=== PATIENT | male | born 1965 | race Caucasian/White ===

== ENCOUNTER 2022-01-24 23:15 | Observation (INO) | payer OTHER ==
[2022-01-24] MEDS ORDERED: ONDANSETRON 4 MG/2 ML VIAL ONE (23:45)
[2022-01-24] MEDS ORDERED: MORPHINE 4 MG/ML SYR ONE (23:45)
[2022-01-24] MEDS ORDERED: HYDRALAZINE HCL 20 MG/ML VIAL ONE (23:45)
[2022-01-24] MEDS ORDERED: ASPIRIN 81 MG CHEWABLE TABLET ONE (23:45)
[2022-01-24] MEDS ORDERED: FAMOTIDINE 20 MG/2 ML VIAL IV ONE (23:45)
[2022-01-24] MEDS ORDERED: NA CHLORIDE 0.9% 1,000 ML ONE (23:46)
[2022-01-25] LABS: Albumin 4.1 g/dL (3.4-5.0); Bilirubin Direct 0.2 mg/dL (0-0.2); Bilirubin Total 0.6 mg/dL (0.2-1.0); Magnesium 2.1 mg/dL (1.8-2.4); Potassium 3.4 mmol/L (3.5-5.1); Protein, Total 7.5 g/dL (6.4-8.2); Troponin High Sensitivity 6.9 pg/mL (<58.9)
[2022-01-25 00:01] LABS: Absolute Lymphocytes (CBC) 3.5 K/uL (0.7-4.9); Lymphocytes % 23.1 % (15.3-44.8); MPV 7.8 fL (7.6-11.3); RBC Red Blood Cell Count 4.66 M/uL (4.33-5.43)
[2022-01-25 00:02] LABS: Protime INR 0.94
[2022-01-25 00:37] LABS: Blood Morphology Comment NOT SEEN (NOT SEEN); Platelet Estimate ADEQ
[2022-01-25] MEDS ORDERED: HYDRALAZINE HCL 20 MG/ML VIAL ONE (00:52)
[2022-01-25] MEDS ORDERED: NS KCL 20MEQ 1,000 ML IV ONE (00:52)
[2022-01-25 01:27] LABS: Urine Blood Negative (Negative); Urine Glucose Negative (Negative); Urine Protein Negative (Negative); Urine Specific Gravity >=1.030 (1.005-1.030)
--- NOTE | 2022-01-25 01:28 | ER ---
Nurse's Notes [facility] Name: Cornelio Holland Age: 57 yrs Sex: Male : 1965 Arrival Date: 01/24/2022 Time: 23:16 Bed 4 Private MD: Marla Velazquez Diagnosis: Chest pain, unspecified;Bradycardia, unspecified;Essential (primary) hypertension;Elevated white blood cell count;Hypokalemia Presentation: 01/24 23:28 Chief complaint: Patient states: I started having chest pain around 1900. It is a jb4 stabbing pain in my shoulders and upper abdomen. It is constant sharp pain, nothing I do makes it any better. Coronavirus screen: At this time, the client does not indicate any symptoms associated with coronavirus-19. Ebola Screen: No symptoms or risks identified at this time. Initial Sepsis Screen: Does the patient meet any 2 criteria? No. Patient's initial sepsis screen is negative. Does the patient have a suspected source of infection? No. Patient's initial sepsis screen is negative. Risk Assessment: Do you want to hurt yourself or someone else? Patient reports no desire to harm self or others. Onset of symptoms was January 24, 2022 at 19:00. Transition of care: patient was not received from another setting of care. 23:28 Method Of Arrival: Wheelchair jb4 23:28 Acuity: GRICELDA 2 jb4 Historical: - Allergies: 23:30 No Known Allergies; jb4 - Home Meds: 23:30 Lisinopril Oral [Active]; amlodipine oral [Active]; Simvastatin Oral [Active]; jb4 Metformin Oral [Active]; - PMHx: 23:30 DM; HTN; Hypercholesterolemia; jb4 - PSHx: 23:30 None; jb4 - Immunization history:: Adult Immunizations up to date. - Social history:: Smoking status: Patient denies any tobacco usage or history of. - Family history:: not pertinent. Screenin/27 00:00 Abuse screen: Denies threats or abuse. Denies injuries from another. Nutritional as6 screening: No deficits noted. Tuberculosis screening: No symptoms or risk factors identified. Fall Risk None identified. Assessment: 01/24 23:35 General: Appears uncomfortable, Behavior is cooperative. Pain: Complains of pain in as6 right supraclavicular area, right clavicle, left supraclavicular area and left clavicle Pain radiates to abdomen Pain began gradually, 3 hours ago. Neuro: Level of Consciousness is awake, alert, obeys commands, Oriented to person, place, time, situation. Cardiovascular: Reports chest pain, shortness of breath, JVD is absent Patient's skin is warm and dry. Rhythm is sinus bradycardia. 23:35 Respiratory: Respiratory effort is even, unlabored, Respiratory pattern is regular, as6 symmetrical. GI: Reports nausea, "I feel like I have food poisoning". Vital Signs: 23:28 BP 192 / 109; Pulse 43; Resp 12; Temp 97.6(TE); Pulse Ox 100% on R/A; Weight 79.38 kg jb4 (R); Height 5 ft. 7 in. (170.18 cm) (R); Pain 8/10; 23:58 BP 166 / 100; Pulse 45; Resp 17; Pulse Ox 96% on R/A; oe 01/25 00:30 BP 114 / 81; Pulse 77; Resp 16 S; Pulse Ox 98% on R/A; as6 01:00 BP 115 / 80; Pulse 75; Resp 16 S; Pulse Ox 97% on R/A; as6 01:52 BP 110 / 80; Pulse 75; Resp 20 S; Pulse Ox 99% on R/A; as6 01/24 23:28 Body Mass Index 27.41 (79.38 kg, 170.18 cm) jb4 ED Course: 01/24 23:16 Patient arrived in ED. mr 23:16 Marla Velazquez MD is Private Physician. mr 23:20 Arm band placed on right wrist. EKG completed in triage. Results shown to MD. jb4 23:21 Alex Nicholson MD is Attending Physician. [facility] 23:22 Isauro Rivera, DAMARI is Primary Nurse. as6 23:30 Triage completed. jb4 23:35 Inserted saline lock: 20 gauge in right antecubital area, using aseptic technique. oe Blood collected. 23:37 SARS-COV-2 RT PCR (Document "Date of Onset" if Symptomatic) Sent. kd3 23:45 XRAY Chest (1 view) In Process Unspecified. EDMS 01/25 00:01 Bed in low position. Call light in reach. Side rails up X2. Adult w/ patient. Cardiac as6 monitor on. Pulse ox on. NIBP on. 00:01 Patient maintains SpO2 saturation greater than 95% on room air. as6 01:25 Arnold Hernandez MD is Hospitalizing Provider. conrad 01:27 Sal Paul MD is Hospitalizing Provider. conrad 01:29 CT Aorta for Dissection In Process Unspecified. EDMS 03:16 No provider procedures requiring assistance completed. Patient admitted, IV remains in as6 place. Administered Medications: 00:13 Discontinued: NS 0.9% 1000 ml IV at 125 ml/hr continuous conrad 01/24 23:55 Drug: Aspirin Chewable Tablet 324 mg Route: PO; 01/25 01:32 Follow up: Response: No adverse reaction 01/24 23:56 Drug: NS 0.9% 1000 ml Route: IV; Rate: 125 ml/hr; Site: right antecubital; 01/25 01:33 Follow up: Response: No adverse reaction; IV Status: Order to discontinue infusion; IV as6 Intake: 150ml 01/24 23:56 Drug: morphine 4 mg Route: IVP; Site: right antecubital; 01/25 01:33 Follow up: Response: No adverse reaction; RASS: Alert and Calm (0) 01/24 23:56 Drug: Zofran (Ondansetron) 4 mg Route: IVP; Site: right antecubital; 01/25 01:33 Follow up: Response: No adverse reaction; RASS: Alert and Calm (0) 01/24 23:57 Drug: Pepcid (famotidine) 20 mg Route: IVP; Site: right antecubital; 01/25 01:33 Follow up: Response: No adverse reaction 01/24 23:57 Drug: hydrALAZINE 10 mg Route: IVP; Site: right antecubital; 01/25 01:33 Follow up: Response: No adverse reaction 01:32 Drug: NS 0.9% with KCl 20 mEq/L 1000 ml Route: IV; Rate: 125 ml/hr; Site: right as6 antecubital; 01:34 Not Given (Hemodynamic Parameters): hydrALAZINE 10 mg IVP once 02:56 Drug: Lovenox (enoxaparin) 80 mg Route: Sub-Q; Site: right lower abdomen; al4 03:16 Follow up: Response: No adverse reaction al4 Intake: 01:33 IV: 150ml; Total: 150ml. as6 Outcome: 01:26 Decision to Hospitalize by Provider. conrad 03:16 Admitted to Med/surg accompanied by tech, via wheelchair, room 229, with chart, Report as6 called to Altagracia WETZEL 03:16 Condition: stable 03:16 Instructed on the need for admit. 03:18 Patient left the ED. as6 Signatures: Dispatcher [employer] EDMS Alex Nicholson MD MD cha Rivera, Mary mr Matt Burkett, RN RN jb4 Pa Saunders Ashby, RN RN as6 Mariela Mann RN RN kd3 Filippo Crooks
--- NOTE | 2022-01-25 01:28 | EDPHYS ---
Physician Documentation [facility] Name: Cornelio Holland Age: 57 yrs Sex: Male : 1965 Arrival Date: 01/24/2022 Time: 23:16 Bed 4 Private MD: Marla Velazquez ED Physician Alex Nicholson HPI: 01/24 23:31 This 57 yrs old Male presents to ER via Wheelchair with complaints of Chest conrad Pain. 23:31 The patient or guardian reports chest pain that is located primarily in the anterior conrad chest wall, bilaterally. Onset: 6 hour(s) ago. The pain does not radiate. Associated signs and symptoms: Pertinent positives: lightheadedness, shortness of breath. The chest pain is described as a heaviness, a pressure. Duration: The patient or guardian reports a single episode, that is still ongoing. Modifying factors: The symptoms are alleviated by nothing. the symptoms are aggravated by nothing. Severity of pain: At its worst the pain was moderate in the emergency department the pain is unchanged. The patient has not experienced similar symptoms in the past. Historical: - Allergies: 23:30 No Known Allergies; jb4 - Home Meds: 23:30 Lisinopril Oral [Active]; amlodipine oral [Active]; Simvastatin Oral [Active]; jb4 Metformin Oral [Active]; - PMHx: 23:30 DM; HTN; Hypercholesterolemia; jb4 - PSHx: 23:30 None; jb4 - Immunization history:: Adult Immunizations up to date. - Social history:: Smoking status: Patient denies any tobacco usage or history of. - Family history:: not pertinent. ROS: 23:31 Constitutional: Negative for fever, chills, and weight loss, Eyes: Negative for injury, conrad pain, redness, and discharge, ENT: Negative for injury, pain, and discharge, Neck: Negative for injury, pain, and swelling, Respiratory: Negative for shortness of breath, cough, wheezing, and pleuritic chest pain, Back: Negative for injury and pain, : Negative for injury, bleeding, discharge, and swelling, MS/Extremity: Negative for injury and deformity, Skin: Negative for injury, rash, and discoloration, Neuro: Negative for headache, weakness, numbness, tingling, and seizure, Psych: Negative for depression, anxiety, suicide ideation, homicidal ideation, and hallucinations, Allergy/Immunology: Negative for hives, rash, and allergies, Endocrine: Negative for neck swelling, polydipsia, polyuria, polyphagia, and marked weight changes, Hematologic/Lymphatic: Negative for swollen nodes, abnormal bleeding, and unusual bruising. 23:31 Cardiovascular: Positive for chest pain. 23:31 Respiratory: Positive for shortness of breath, at rest. Exam: 23:31 Constitutional: This is a well developed, well nourished patient who is awake, alert, conrad and in no acute distress. Head/Face: Normocephalic, atraumatic. Eyes: Pupils equal round and reactive to light, extra-ocular motions intact. Lids and lashes normal. Conjunctiva and sclera are non-icteric and not injected. Cornea within normal limits. Periorbital areas with no swelling, redness, or edema. ENT: Nares patent. No nasal discharge, no septal abnormalities noted. Tympanic membranes are normal and external auditory canals are clear. Oropharynx with no redness, swelling, or masses, exudates, or evidence of obstruction, uvula midline. Mucous membranes moist. Neck: Trachea midline, no thyromegaly or masses palpated, and no cervical lymphadenopathy. Supple, full range of motion without nuchal rigidity, or vertebral point tenderness. No Meningismus. Chest/axilla: Normal chest wall appearance and motion. Nontender with no deformity. No lesions are appreciated. Respiratory: Lungs have equal breath sounds bilaterally, clear to auscultation and percussion. No rales, rhonchi or wheezes noted. No increased work of breathing, no retractions or nasal flaring. Back: No spinal tenderness. No costovertebral tenderness. Full range of motion. Male : Normal genitalia with no discharge or lesions. Skin: Warm, dry with normal turgor. Normal color with no rashes, no lesions, and no evidence of cellulitis. MS/ Extremity: Pulses equal, no cyanosis. Neurovascular intact. Full, normal range of motion. Neuro: Awake and alert, GCS 15, oriented to person, place, time, and situation. Cranial nerves II-XII grossly intact. Motor strength 5/5 in all extremities. Sensory grossly intact. Cerebellar exam normal. Normal gait. Psych: Awake, alert, with orientation to person, place and time. Behavior, mood, and affect are within normal limits. 23:31 Cardiovascular: Rate: bradycardic, Rhythm: regular, Pulses: Pulses are 4+ in bilateral radial, brachial, femoral, popliteal, posterior tibial and and dorsalis pedis arteries.. Heart sounds: normal, Edema: is not appreciated, JVD: is not appreciated. 23:31 ECG was reviewed by the Attending Physician. 23:34 ECG was reviewed by the Attending Physician. conrad Vital Signs: 23:28 BP 192 / 109; Pulse 43; Resp 12; Temp 97.6(TE); Pulse Ox 100% on R/A; Weight 79.38 kg jb4 (R); Height 5 ft. 7 in. (170.18 cm) (R); Pain 8/10; 23:58 BP 166 / 100; Pulse 45; Resp 17; Pulse Ox 96% on R/A; oe 01/25 00:30 BP 114 / 81; Pulse 77; Resp 16 S; Pulse Ox 98% on R/A; as6 01:00 BP 115 / 80; Pulse 75; Resp 16 S; Pulse Ox 97% on R/A; as6 01:52 BP 110 / 80; Pulse 75; Resp 20 S; Pulse Ox 99% on R/A; as6 01/24 23:28 Body Mass Index 27.41 (79.38 kg, 170.18 cm) jb4 MDM: 01/24 23:21 Patient medically screened. conrad 23:35 Differential diagnosis: abnormal EKG, acute myocardial infarction, acute pericarditis, conrad anxiety, chest wall pain, cholecystitis, Cholelithiasis costochondritis, esophagitis, hiatal hernia, myocarditis, pancreatitis, peptic ulcer disease, pulmonary embolus, stable angina, thoracic aortic disection, unstable angina. HEART Score: History: Moderately Suspicious (1), ECG: Non specific repolarization disturbance / LBTB / PM (1), Age: > 45 and < 65 years (1), Risk Factors: > or = 3 Risk factors for atherosclerotic disease (2), [Hypercholesterolemia] [Hypertension] [DM] [+ Family HX] Troponin: < or = 1 x Normal Limit (0), Total Score = 5. The patient was given aspirin in the Emergency Department. The patient's deep vein thrombosis risk score was calculated as follows: Total Score: 0. This patient was found to be at low risk for a deep vein thrombosis by using the Well's assessment criteria. The patient's pulmonary embolism risk score was calculated as follows: Total Score: 0-2 points. This patient was found to be at low risk for a pulmonary embolism by using the Well's assessment criteria. HAYDEE Risk Score: TOTAL SCORE = 0. Data reviewed: vital signs, nurses notes, lab test result(s), EKG, radiologic studies, CT scan, plain films. 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 Test interpretation: by ED physician or midlevel provider: ECG, plain radiologic studies. Counseling: I had a detailed discussion with the patient and/or guardian regarding: the historical points, exam findings, and any diagnostic results supporting the discharge/admit diagnosis, lab results, radiology results. 01/24 23:22 Order name: Basic Metabolic Panel; Complete Time: 00:01 [facility] 01/24 23:22 Order name: CBC with Diff; Complete Time: 00:38 [facility] 01/24 23:22 Order name: LFT's; Complete Time: 00:01 [facility] 01/24 23:22 Order name: Magnesium; Complete Time: 00:01 [facility] 01/24 23:22 Order name: NT PRO-BNP; Complete Time: 00:01 [facility] 01/24 23:22 Order name: PT-INR; Complete Time: 00:03 [facility] 01/24 23:22 Order name: Troponin HS; Complete Time: 00:01 [facility] 01/24 23:22 Order name: XRAY Chest (1 view) [facility] 01/24 23:22 Order name: Lipase; Complete Time: 00:01 [facility] 01/24 23:22 Order name: SARS-COV-2 RT PCR (Document "Date of Onset" if Symptomatic); Complete Time: conrad 02:01/24 23:30 Order name: CT Aorta for Dissection [facility] 01/25 00:09 Order name: Manual Differential; Complete Time: 00:38 [facility] 01/25 01:27 Order name: Urine Dipstick-Ancillary; Complete Time: 02:21 [facility] 01/24 23:22 Order name: EKG; Complete Time: 23:23 [facility] 01/24 23:22 Order name: Cardiac monitoring; Complete Time: 23:33 [facility] 01/24 23:22 Order name: EKG - Nurse/Tech; Complete Time: 23:33 01/24 23:22 Order name: IV Saline Lock; Complete Time: :01/24 23:22 Order name: Labs collected and sent; Complete Time: :01/24 23:22 Order name: O2 Per Protocol; Complete Time: :01/24 23:30 Order name: EKG; Complete Time: 23:31 01/25 00:39 Order name: EKG; Complete Time: 00:39 01/24 23:22 Order name: O2 Sat Monitoring; Complete Time: 23:01/24 23:22 Order name: Urine Dipstick-Ancillary (obtain specimen); Complete Time: 01:40 01/24 23:30 Order name: EKG - Nurse/Tech; Complete Time: :01/25 00:39 Order name: EKG - Nurse/Tech; Complete Time: 01:01 [facility] EC:31 Rate is 46 beats/min. Rhythm is regular. QRS [place] is Normal. AL interval is normal. QRS conrad interval is normal. QT interval is normal. No Q waves. T waves are Normal. No ST changes noted. Clinical impression: Sinus bradycardia and No evidence of ischemia. Interpreted by me. Reviewed by me. 23:34 Rate is 43 beats/min. Rhythm is regular. QRS [place] is Normal. AL interval is normal. QRS conrad interval is normal. QT interval is normal. No Q waves. T waves are Normal. No ST changes noted. Clinical impression: Sinus bradycardia and No evidence of ischemia. Interpreted by me. Reviewed by me. Administered Medications: 01/25 00:13 Discontinued: NS 0.9% 1000 ml IV at 125 ml/hr continuous [facility] 01/24 23:55 Drug: Aspirin Chewable Tablet 324 mg Route: PO; as6 01/25 01:32 Follow up: Response: No adverse reaction 01/24 23:56 Drug: NS 0.9% 1000 ml Route: IV; Rate: 125 ml/hr; Site: right antecubital; 01/25 01:33 Follow up: Response: No adverse reaction; IV Status: Order to discontinue infusion; IV as6 Intake: 150ml 01/24 23:56 Drug: morphine 4 mg Route: IVP; Site: right antecubital; 01/25 01:33 Follow up: Response: No adverse reaction; RASS: Alert and Calm (0) 01/24 23:56 Drug: Zofran (Ondansetron) 4 mg Route: IVP; Site: right antecubital; 01/25 01:33 Follow up: Response: No adverse reaction; RASS: Alert and Calm (0) 01/24 23:57 Drug: Pepcid (famotidine) 20 mg Route: IVP; Site: right antecubital; 01/25 01:33 Follow up: Response: No adverse reaction 01/24 23:57 Drug: hydrALAZINE 10 mg Route: IVP; Site: right antecubital; 01/25 01:33 Follow up: Response: No adverse reaction 01:32 Drug: NS 0.9% with KCl 20 mEq/L 1000 ml Route: IV; Rate: 125 ml/hr; Site: right as6 antecubital; 01:34 Not Given (Hemodynamic Parameters): hydrALAZINE 10 mg IVP once 02:56 Drug: Lovenox (enoxaparin) 80 mg Route: Sub-Q; Site: right lower abdomen; al4 03:16 Follow up: Response: No adverse reaction al4 Disposition Summary: 01/25/22 01:26 Hospitalization Ordered Hospitalization Status: Observation conrad Location: Telemetry/MedSurg (observation) conrad Condition: Fair conrad Problem: new conrad Symptoms: have improved conrad Bed/Room Type: Standard conrad Provider: Sal Paul(01/25/22 01:27) conrad Room Assignment: [facility](01/25/22 01:37) Diagnosis - Chest pain, unspecified conrad - Bradycardia, unspecified conrad - Essential (primary) hypertension conrad - Elevated white blood cell count conrad - Hypokalemia conrad Forms: - Medication Reconciliation Form conrad - SBAR form conrad Signatures: Dispatcher [employer] EDMS Riddhi Munoz RN RN Alex Jamil MD MD cha Attema, Lee, TILE TRIMMER-C TILE TRIMMER-Cla1 Matt Burkett RN RN jb4 Isauro Rivera RN RN as6 Filippo Crooks al4 Corrections: (The following items were deleted from the chart) 01:26 Hernandez, Arnold conrad conrad 01:37 01:26 conrad mw
--- NOTE | 2022-01-25 02:18 | P.HP ---
Certification for Inpatient Patient admitted to: Observation With expected LOS: <2 Midnights Patient will require the following post-hospital care: None Practitioner: I am a practitioner with admitting privileges, knowledge of patient current condition, hospital course, and medical plan of care. Services: Services provided to patient in accordance with Admission requirements found in Title 42 Section 412.3 of the Code of Federal Regulations Patient History Date of Service: 01/25/22 Reason for admission: Chest pain History of Present Illness: 57-year-old male with history of diabetes mellitus type [id number], hypertension, hyperlipidemia presents the emergency department for epigastric pain/chest pain/back pain. Patient reports his pain began around 7 PM gradually got worse throughout the evening it is described as sharp with associated nausea. 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 Allergies No Known Allergies Allergy (Unverified 04/21/12 06:30) - Past Medical/Surgical History -: Hypertension -: Hyperlipidemia -: Diabetes type 2not insulin-dependent -: Foot surgery Psychosocial/ Personal History: Patient lives at home with his - Family History Mother -: Cancer Father -: Stroke - Social History Smoking Status: Never smoker Alcohol use: No CD- Drugs: No Caffeine use: Yes Place of Residence: Home Review of Systems 10-point ROS is otherwise unremarkable Cardiovascular: Chest Pain Gastrointestinal: Nausea, Abdominal Pain Physical Examination - Physical Exam General: Alert, In no apparent distress, Oriented x3 HEENT: Atraumatic, PERRLA, Mucous membr. moist/pink, EOMI, Sclerae nonicteric Neck: Supple, 2+ carotid pulse no bruit, No LAD, Without JVD or thyroid abnorma lity Respiratory: Clear to auscultation bilaterally, Normal air movement Cardiovascular: Regular rate/rhythm, Normal S1 S2 Gastrointestinal: Normal bowel sounds, No tenderness Musculoskeletal: No tenderness Integumentary: No rashes Neurological: Normal speech, Normal strength at 5/5 x4 extr, Normal tone, Normal affect - Studies Laboratory Data (last 24 hrs) 01/24/22 23:28: PT 10.3, INR 0.94 01/24/22 23:28: WBC 15.0 H, Hgb 14.5, Hct 43.0, Plt Count 226 01/24/22 23:28: Sodium 141, Potassium 3.4 L, BUN 20 H, Creatinine 1.07, Glucose 149 H, Magnesium 2.1, Total Bilirubin 0.6, AST 16, ALT 43, Alkaline Phosphatase 83, Lipase 97 Assessment and Plan - Plan Assessment: Chest pain rule out ACS Eosinophilic leukocytosis Diabetes type [id number] Hypertension Hyperlipidemia Plan: Chest pain rule out ACS: Trend troponins, monitor on telemetry, cardiology consult in place. Patient has not had previous cardiac evaluation we will also provide with Protonix in case pain is GI related. Aspirin, statin, beta-mariela therapy, as needed pain medications. Eosinophilic leukocytosis: Noted, ROS negative aside from occasional GI symptoms with bloating, occasional constipation. Unknown etiology patient does report he has seasonal allergies recommended follow-up with PCP with repeat labs. Diabetes type [id number]: ACH S Accu-Chek, sliding scale insulin Hypertension: Continue home meds Hyperlipidemia: Continue home meds DVT PPX: Lovenox Code status: Full Discharge Plan: Home Plan to discharge in: 24 Hours - Advance Directives Does patient have a Living Will: No Does patient have a Durable POA for Healthcare: No - Code Status/Comfort Care Code Status Assessed: Yes (Full code) Critical Care: No Time Spent Managing Pts Care (In Minutes): 55
[2022-01-25 03:59] VITALS: BMI 27.4
[2022-01-25] MEDS ORDERED: ONDANSETRON 4 MG/2 ML VIAL IV PRN (03:59)
[2022-01-25 04:36] VITALS: O2SAT 99
[2022-01-25] MEDS ORDERED: METOPROLOL TAR 25 MG TAB PO SCH (06:00)
[2022-01-25 06:19] LABS: Troponin High Sensitivity 12.2 pg/mL (<58.9)
[2022-01-25] MEDS ORDERED: PANTOPRAZOLE 40MG TABLET PO SCH (06:30)
[2022-01-25] MEDS ORDERED: INSULIN -REGULAR HUMAN 50 UNIT/0.5 ML ML SQ SCH (07:30)
[2022-01-25 08:10] LABS: Hematocrit 39.2 % (39.6-49.0); Lymphocytes % 18.6 % (15.3-44.8); MPV 7.4 fL (7.6-11.3); RBC Red Blood Cell Count 4.26 M/uL (4.33-5.43)
[2022-01-25] MEDS ORDERED: ENOXAPARIN 40 MG/0.4 ML SQ SCH (09:00)
[2022-01-25] MEDS ORDERED: ASPIRIN EC 81 MG TAB PO SCH (09:00)
[2022-01-25 09:57] VITALS: BP 125/79; TEMP 97.2
--- NOTE | 2022-01-25 09:58 | P.DS ---
Admission Date: 01/25/22 Discharge Date: 01/25/22 Disposition: ROUTINE DISCHARGE Discharge Condition: FAIR Reason for Admission: Chest pain Brief History of Present Illness: History of Present Illness: 57-year-old male with history of diabetes mellitus type [id number], hypertension, hyperlipidemia presents the emergency department for epigastric pain/chest pain/back pain. Patient reports his pain began around 7 PM gradually got worse throughout the evening it is described as sharp with associated nausea. 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 Allergies No Known Allergies Allergy (Unverified 04/21/12 06:30) - Past Medical/Surgical History -: Hypertension -: Hyperlipidemia -: Diabetes type 2not insulin-dependent -: Foot surgery Hospital Course: Patient with history of hypertension diabetes mellitus, recurrent stress-induced epigastric pain presented because of epigastric pain radiating to both shoulders. On admission he was noted with elevated WBC with high eosinophil count. EKG was normal. Serial sets of cardiac enzymes were negative. He was evaluated by cardiology and not felt to be having acute coronary syndrome. Symptoms were attributed to possible gastritis. Patient was advised to start PPI. Given his persistent eosinophilic leukocytosis. Patient will be referred to hematology for work-up as outpatient. Vital Signs/Physical Exam: Temp Pulse Resp BP Pulse Ox 97 F 50 96 H 92/55 L 0 L 01/25/22 04:00 01/25/22 06:00 01/25/22 04:00 01/25/22 06:00 01/25/22 04:00 General: Alert, In no apparent distress, Oriented x3 HEENT: Atraumatic, Normocephalic, PERRLA Neck: Supple, 2+ carotid pulse no bruit, JVD not distended Respiratory: Clear to auscultation bilaterally, Normal air movement Cardiovascular: No edema, Normal pulses, Regular rate/rhythm, Normal S1 S2 Gastrointestinal: Normal bowel sounds, Soft and benign, Non-distended Musculoskeletal: No clubbing, No swelling Neurological: Normal gait, Normal speech, Normal strength at 5/5 x4 extr Laboratory Data at Discharge: WBC 16.1 K/uL (4.3-10.9) H 01/25/22 07:46 Hgb 13.3 g/dL (13.6-17.9) L 01/25/22 07:46 Hct 39.2 % (39.6-49.0) L 01/25/22 07:46 Plt Count 199 K/uL (152-406) 01/25/22 07:46 PT 10.3 SECONDS (9.5-12.5) 01/24/22 23:28 INR 0.94 01/24/22 23:28 Sodium 141 mmol/L (136-145) 01/24/22 23:28 Potassium 3.4 mmol/L (3.5-5.1) L 01/24/22 23:28 BUN 20 mg/dL (7-18) H 01/24/22 23:28 Creatinine 1.07 mg/dL (0.55-1.3) 01/24/22 23:28 Glucose 149 mg/dL (74-106) H 01/24/22 23:28 Magnesium 2.1 mg/dL (1.8-2.4) 01/24/22 23:28 Total Bilirubin 0.6 mg/dL (0.2-1.0) 01/24/22 23:28 AST 16 U/L (15-37) 01/24/22 23:28 ALT 43 U/L (12-78) 01/24/22 23:28 Alkaline Phosphatase 83 U/L (45-117) 01/24/22 23:28 Triglycerides 87 mg/dL (<150) 01/25/22 05:46 Cholesterol 105 mg/dL (<200) 01/25/22 05:46 HDL Cholesterol 37 mg/dL (40-60) L 01/25/22 05:46 Cholesterol/HDL Ratio 2.84 01/25/22 05:46 Lipase 97 U/L (73-393) 01/24/22 23:28 Home Medications: Lisinopril [Zestril] 40 mg PO DAILY 01/25/22 Omeprazole [Prilosec] 40 mg PO DAILY #30 capsule. 01/25/22 Simvastatin 20 mg PO BEDTIME 01/25/22 New Medications: Omeprazole [Prilosec] 40 mg PO DAILY #30 capsule. Physician Discharge Instructions: Follow-up with hematology for your high eosinophil count Take omeprazole daily30 minutes before mealsfor at least 6 weeks Diet: ADA Activity: Ad killian Followup: Marla Velazquez, DO [Primary Care Provider] - Physician Review: Patient Assessed, Agree with Above Assessment and Plan Time spent managing pt's care (in minutes): 35
--- NOTE | 2022-01-25 13:08 | RAD REPORT ---
EXAM DESCRIPTION: CT - Angio Aorta For Dissection - 01/25/2022 6:58 am CLINICAL HISTORY: 57 years, Male, chest pain COMPARISON: None. TECHNIQUE: Multiple transaxial tomograms from the thoracic and abdominal aorta from the lung apex to the ischial tuberosities performed after the administration of large bolus of IV contrast for comple te opacification of the thoracic, abdominal aorta and iliac arteries utilizing 3 mm slice thickness a t 3 mm interval reconstruction. 2-D and 3-D multiplanar reformats, volume rendering technique and maximum intensity projection images were generated and reviewed. This exam was performed according to our departmental dose-optimization protocol, which includes auto mated exposure control, adjustment of the mA and/or kV according to patient size and/or use of iterat iker reconstruction technique. FINDINGS: Thoracic aorta: The thoracic aorta demonstrate to be unremarkable. There is no evidence for aneurysm. No significant dissection allowing for motion along the aortic root. The great vessels demonstrate normal branching pattern with no evidence for stenosis and/or occlusion. Abdominal aorta: The abdominal aorta demonstrate to be unremarkable. There is no evidence for dissection 10/or aneurys m. There is normal appearance of the visceral branches and single bilateral renal arteries. Incidenta lly is noted the presence of a retroaortic left renal vein. Chest: The lung parenchyma demonstrate minimal dependent atelectatic changes lung bases. No significa nt pulmonary nodules/or consolidations. The trachea mainstem bronchus demonstrate to be unremarkable. There is no pleural/or pericardial effusions. The heart is normal in size. There are no significant coronary artery calcifications. The central pulmonary arteries demonstrate no major filling defects. There is no significant mediastinal and/or hilar lymphadenopathy. The axillary regions demonstrate to be clear. The bone windows demonstrate no significant skeletal lesions. Abdomen and pelvis: The liver, gallbladder, spleen, adrenal glands, pancreas demonstrate to be unrema rkable. The kidneys demonstrate normal uptake of contrast media. There is no evidence for nephrolithiasis/or hydronephrosis. The unopacified stomach, small bowel and large bowel demonstrate to be unremarkable. There is no evid ence for bowel dilatation and/or free air. The urinary bladder is normal. The prostate gland is unremarkable. There is no retroperitoneal lymp hadenopathy. There is no evidence for ascites. The bone windows demonstrate no significant skeletal l esions. Small left inguinal hernia containing omentum. IMPRESSION: No evidence for aortic aneurysm/or dissection of the thoracic or abdominal aorta. Small left inguinal hernia containing omentum. Otherwise unremarkable CT scan of the chest, abdomen and pelvis with contrast. Electronically signed by: Marcel Thompson MD 01/25/2022 2:01 AM CDT Due to temporary technical issues with the PACS/Fluency reporting system, reports are being signed by the in house radiologists without review as a courtesy to insure prompt reporting. The interpreting radiologist is fully responsible for the content of the report.
--- NOTE | 2022-01-25 13:09 | RAD REPORT ---
EXAM DESCRIPTION: RAD - Chest Single View - 01/24/2022 11:43 pm CLINICAL HISTORY: 57 years, Male, CHEST PAIN COMPARISON: None. FINDINGS: Single view of the chest was obtained portable. No prior films are available for compariso n. The lung volume is slightly decreased. External EKG leads within the [id number] limits diagnosi s. The cardiomediastinal silhouette demonstrate to be unremarkable. The heart is not enlarged. Th e thoracic aorta is unremarkable. The pulmonary vasculature is normal distribution. Costophrenic angl es are sharp. No areas of consolidation or masses are seen. The rest of the soft tissue and bony structures demonstrate to be unremarkable. IMPRESSION: Decreased lung volume. No acute cardiopulmonary disease. Electronically signed by: Marcel Thompson MD 01/25/2022 12:54 AM CDT Due to temporary technical issues with the PACS/Fluency reporting system, reports are being signed by the in house radiologists without review as a courtesy to insure prompt reporting. The interpreting radiologist is fully responsible for the content of the report.
[2022-01-25] MEDS ORDERED: ATORVASTATIN 40 MG TAB PO SCH (21:00)
--- NOTE | 2022-01-26 00:09 | CON ---
Date of Consultation: 01/25/[address] Paul with chest pain on 01/25/2022. Reason For Consultation: Atypical chest pain. History Of Present Illness: Mr. Holland came in with really mid epigastric to low epigastric pain with some bilateral shoulder pain that are separate in occurrences, nonexertional. Denied PND, orthopnea , pedal edema, palpitations, or syncope. Denied any unexplained nausea, vomiting, or diaphoresis. D enied any syncope, fever or chills. Workup so far has been negative including chest x-ray, EKG, BNP and troponin. Allergies: NONE. Review of Systems: Negative. Social History: Negative. Family History: Negative. Medications: Include lisinopril, Zocor, and metformin. Past Medical History: Include diabetes, hypertension, and dyslipidemia. Physical Examination: General: The patient appeared to be in no acute distress. Vital Signs: Stable, afebrile. Neck: Supple with no bruit, lymphadenopathy, or JVD. Chest: Clear. Cardiac: Exam revealed a regular rhythm and rate. No murmurs, gallops, or rubs. Abdomen: Benign. Extremities: Revealed no clubbing, cyanosis, or edema. Data Reviewed: Diagnostic data within normal limits. Impression And Plan: Atypical chest pain in a patient with history of hypertension, diabetes, and dy slipidemia. Myocardial infarction ruled out. Troponin is negative. BNP is negative. EKG is negati ve. Symptom free now. I am comfortable with him going home and I will make an arrangement for him t o have an echocardiogram and an outpatient MPI. Case was discussed with Dr. Paul. RERE/PARTH Voice ID: [id number] Report ID: [id number]
== END 2022-01-25 10:33 | disposition home or self-care (01) ==
LOC: ER 23:15 → ERHOLD 01-25 02:07 → 2ND 01-25 03:07
PROVIDERS: ADMIT Internal Medicine; ATTEND Internal Medicine
DX: R07.89 Other chest pain (principal); E11.9 Type 2 diabetes mellitus without complications; I10 Essential (primary) hypertension; E78.5 Hyperlipidemia, unspecified; D72.19 Other eosinophilia; K59.00 Constipation, unspecified; R14.0 Abdominal distension (gaseous); J30.2 Other seasonal allergic rhinitis; Z20.822 Contact with and (suspected) exposure to COVID-19; Z82.3 Family history of stroke; Z80.9 Family history of malignant neoplasm, unspecified
CPT/HCPCS: 96361; 93005 ×3; 85025 ×2; 80048; 36415; 83735; 85610; 80061; 82947; 80076; 81003; 84484 ×2; 83690; 83880; 71275; 74175; 71045; 96375; 96372; 96374; 99285; U0003; Q9967; J0360; J1650; J7030; J2405; J3490; J3480; G0378 ×2